=== PATIENT | male | born 1940 | race African-American/Black ===

== ENCOUNTER 2020-02-16 18:23 | Inpatient (IN) | payer OTHER ==
[~2020-02-16] VITALS: Ht 188 cm; Wt 89.9 kg
[2020-02-16 18:40] VITALS: BP 143/73
--- NOTE | 2020-02-16 18:43 | NUR ---
ED Nurse Note: Collected blood specimen then sent.
[2020-02-16] MEDS ORDERED: Aspirin Baby 81mg ORAL ONE (18:45)
[2020-02-16] MEDS ORDERED: Morphine Sulfate 2mg/ml Inj(IV/IM USE ONLY) IVP ONE (18:45)
--- NOTE | 2020-02-16 18:46 | NUR ---
ED Nurse Note: Patient wheeled in after a clinic visit from Dr Tay's office. Patient reports left side CP and non radiating x 3 days. Mild SOB at rest. Sats 95-98 % in room air. AAO x4, follows commands. Dr Schmitz at the bed side.
--- NOTE | 2020-02-16 18:54 | NUR ---
ED Nurse Note: Meds carried out as ordered. Pt taken to CT in stable condition.
--- NOTE | 2020-02-16 19:01 | NUR ---
ED Nurse Note: Patient came back from CT and stable
--- NOTE | 2020-02-16 19:12 | NUR ---
HAND-OFF: Report given to Moriah CONN.
--- NOTE | 2020-02-16 19:15 | NUR ---
ED Nurse Note: Report received from FABIEN Moreno. Pt returned from CT, resting in bed. NAD noted.
--- NOTE | 2020-02-16 19:17 | Emergency Room Report ---
History of Present Illness General Chief Complaint: Chest Pain Source: Patient Present Illness HPI Disclaimer: Please note that this report is being documented using DRAGON technology. This can lead to erroneous entry secondary to incorrect interpretation by the dictating instrument. HPI: 79-year-old male history of CKD, hypertension presented for chest pain. He states he has had chest pain for the past week. Left-sided and nonradiating associated with mild shortness of breath. Mild cough no vomiting no fever. He was recently admitted to [facility] at that time Covid negative. Allergies: Coded Allergies: No Known Allergies (Unverified , 02/16/20) COVID-19 Screening Contact w/high risk pt: No Experienced COVID-19 symptoms?: No COVID-19 Testing performed WINE BLENDER: No Patient History Reviewed Nursing Documentation: PMH: Agreed; PSxH: Agreed Nursing Documentation-PMH Past Medical History: No History, Except For Hx Hypertension: Yes Hx Diabetes: Yes Review of Systems All Other Systems: negative except mentioned in HPI Physical Exam Vital Signs Date Time Temp Pulse Resp B/P (MAP) Pulse Ox O2 Delivery O2 Flow Rate FiO2 02/16/20 18:36 97.9 64 22 143/73 (96) 100 Room Air Sp02 EP Interpretation: reviewed, normal General Appearance: well appearing, no apparent distress Head: normocephalic, atraumatic Eyes: bilateral eye PERRL, bilateral eye EOMI ENT: hearing grossly normal, moist mucus membranes Neck: full range of motion, supple Respiratory: lungs clear, normal breath sounds, no rhonchi, no respiratory distress, no retraction, no wheezing Cardiovascular #1: normal peripheral pulses, regular rate, rhythm, no murmur Gastrointestinal: non tender, soft, non-distended, no guarding Neurologic: alert, oriented x3, no focal defects Skin: normal color, warm/dry Medical Decision Making Diagnostic Impression: Primary Impression: Chest pain Additional Impressions: Hiatal hernia Esophagitis ER Course MDM: Differential included but not limited to angina, pneumonia, CHF, COPD to name a few Clinical course-IV inserted, cardiac monitoring pulse oximetry chest x-ray, EKG and CT scan of the abdomen pelvis ordered. Troponin was negative. CT scan of the abdomen pelvis showed evidence of a hiatal hernia with probable esophagitis. Chest x-ray showed no large infiltrate. EKG had no ischemic changes. However patient does have multiple risk factors for cardiac disease and also is a very poor historian. Spoke with patient's primary care doctor who will place patient in observation. Patient admitted by Dr. Tay. Patient was given aspirin in the ER. Labs - Laboratory Tests Test 02/16/20 18:40 White Blood Count 5.2 K/UL (4.8-10.8) Red Blood Count 4.65 M/UL (4.70-6.10) L Hemoglobin 13.2 G/DL (14.2-18.0) L Hematocrit 41.2 % (42.0-52.0) L Mean Corpuscular Volume 88 FL (80-99) Mean Corpuscular Hemoglobin 28.4 PG (27.0-31.0) Mean Corpuscular Hemoglobin Concent 32.1 G/DL (32.0-36.0) Red Cell Distribution Width 14.9 % (11.6-14.8) H Platelet Count 203 K/UL (150-450) Mean Platelet Volume 7.4 FL (6.5-10.1) Neutrophils (%) (Auto) % (45.0-75.0) Lymphocytes (%) (Auto) % (20.0-45.0) Monocytes (%) (Auto) % (1.0-10.0) Eosinophils (%) (Auto) % (0.0-3.0) Basophils (%) (Auto) % (0.0-2.0) Differential Total Cells Counted 100 Neutrophils % (Manual) 34 % (45-75) L Lymphocytes % (Manual) 58 % (20-45) H Monocytes % (Manual) 6 % (1-10) Eosinophils % (Manual) 1 % (0-3) Basophils % (Manual) 1 % (0-2) Band Neutrophils 0 % (0-8) Platelet Estimate Adequate Platelet Morphology Normal Red Blood Cell Morphology Normal Sodium Level 141 MMOL/L (136-145) Potassium Level 4.4 MMOL/L (3.5-5.1) Chloride Level 104 MMOL/L (98-107) Carbon Dioxide Level 28 MMOL/L (21-32) Anion Gap 10 mmol/L (5-15) Blood Urea Nitrogen 21 mg/dL (7-18) H Creatinine 1.1 MG/DL (0.55-1.30) Estimated Glomerular Filtration Rate > 60 mL/min (>60) Glucose Level 111 MG/DL (74-106) H Calcium Level 9.3 MG/DL (8.5-10.1) Total Bilirubin 0.4 MG/DL (0.2-1.0) Aspartate Amino Transferase (AST) 14 U/L (15-37) L Alanine Aminotransferase (ALT) 14 U/L (12-78) Alkaline Phosphatase 74 U/L (46-116) Troponin I 0.001 ng/mL (0.000-0.056) Pro-B-Type Natriuretic Peptide 40 pg/mL (0-125) Total Protein 7.2 G/DL (6.4-8.2) Albumin 3.6 G/DL (3.4-5.0) Globulin 3.6 g/dL Albumin/Globulin Ratio 1.0 (1.0-2.7) EKG Diagnostic Results Troponin ordered: Yes Rate: normal Rhythm: NSR ST Segments: no acute changes Chest X-Ray Diagnostic Results Chest X-Ray Diagnostic Results : Chest X-Ray Ordered: Yes # of Views/Limited/Complete: 1 View Indication: Chest Pain EP Interpretation: Yes Interpretation: no consolidation, no effusion, no pneumothorax Impression: No acute disease PA Scribe Text Da Schmitz MD CT/MRI/US Diagnostic Results CT/MRI/US Diagnostic Results : Imaging Test Ordered: CT abdomen and pelvis Impression IMPRESSION: 1. Cardiomegaly. 2. Hiatal hernia probable distal esophagitis. 3. Fatty infiltration of the liver. 4. The gallbladder is unremarkable per 5. Nonspecific stranding about the perinephric spaces. 6. Moderate quantity of stool throughout the colon. 7. No evidence of bowel obstruction. 8. The appendix is seen on coronal image 43 and is unremarkable. 9. Mild enlargement of the prostate gland. Last Vital Signs Date Time Temp Pulse Resp B/P (MAP) Pulse Ox O2 Delivery O2 Flow Rate FiO2 02/16/20 18:46 64 22 Room Air 02/16/20 18:40 97.9 143/73 100 Disposition: PLACE IN OBSERVATION Condition: Serious Scripts Unable to Obtain Active Prescriptions or Reported Meds Referrals: Titi Tay MD (PCP) Da Schmitz M.D. Feb 16, 2020 19:17
--- NOTE | 2020-02-16 19:29 | Diagnostic Imaging Report ---
EXAM: CT Abdomen and Pelvis Without Intravenous Contrast CLINICAL HISTORY: PAIN TECHNIQUE: Axial computed tomography images of the abdomen and pelvis without intravenous contrast. CTDI is 8.2 mGy and DLP is 468.9 mGy-cm. One or more of the following dose reduction techniques were used: automated exposure control, adjustment of the mA and/or kV according to patient size, use of iterative reconstruction technique. COMPARISON: No previous studies. FINDINGS: Lung bases: Subsegmental atelectasis noted posteriorly at the lung bases. Heart: Heart is top normal in size. Mediastinum: Hiatal hernia and probable distal esophagitis. ABDOMEN: Liver: Diffuse fatty infiltration of the liver is noted. The liver and the spleen are normal in contour. Gallbladder and bile ducts: Unremarkable. No calcified stones. No ductal dilation. Pancreas: See below. Spleen: See above. Adrenals: The adrenal glands, the head, body, tail of the pancreas are unremarkable. Kidneys and ureters: Nonspecific stranding about the perinephric spaces bilaterally which requires clinical correlation. 1.7 cm simple cyst upper pole region of the right kidney. No follow-up is advised. No obstructing stones. Stomach and bowel: Presumed ingested material in the stomach. Moderate quantity of stool throughout the colon. No evidence of bowel obstruction. Mild distention of the rectosigmoid with stool. No mucosal thickening. PELVIS: Appendix: The appendix is seen on coronal image 43 and is unremarkable. Bladder: Unremarkable. No stones. Reproductive: Prostate gland measures 4.1 x 4.8 cm and is mildly enlarged. ABDOMEN and PELVIS: Intraperitoneal space: Unremarkable. No free air. No significant fluid collection. Bones/joints: Moderate degenerative disc disease of the thoracolumbar spine. 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 Alignment of the thoracolumbar spine is unremarkable. The sacrum and coccyx are unremarkable. Decrease in height at the L5 vertebral body. Anterior wedging of the L2 vertebral body. 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 Ischiorectal fat is clean. Vasculature: Atherosclerotic disease of the abdominal aorta extending to the common iliac arteries. No abdominal aortic aneurysm. Lymph nodes: No pelvic or inguinal lymphadenopathy. Other findings: Elevation of the right hemidiaphragm. IMPRESSION: 1. Cardiomegaly. 2. Hiatal hernia probable distal esophagitis. 3. Fatty infiltration of the liver. 4. The gallbladder is unremarkable per 5. Nonspecific stranding about the perinephric spaces. 6. Moderate quantity of stool throughout the colon. 7. No evidence of bowel obstruction. 8. The appendix is seen on coronal image 43 and is unremarkable. 9. Mild enlargement of the prostate gland.
[2020-02-16 19:30] VITALS: BP 138/74
[2020-02-16 19:40] LABS: HEMATOCRIT 41.2 % (42.0-52.0); HEMOGLOBIN 13.2 G/DL (14.2-18.0); MEAN CORPUSCULAR VOLUME 88 FL (80-99); PLATELET COUNT 203 K/UL (150-450); RED BLOOD COUNT 4.65 M/UL (4.70-6.10); RED CELL DISTRIBUTION WIDTH 14.9 % (11.6-14.8); WHITE BLOOD COUNT 5.2 K/UL (4.8-10.8)
[2020-02-16 19:49] LABS: ANION GAP 10 mmol/L (5-15); BLOOD UREA NITROGEN 21 mg/dL (7-18); CALCIUM 9.3 MG/DL (8.5-10.1); CARBON DIOXIDE 28 MMOL/L (21-32); CHLORIDE 104 MMOL/L (98-107); CREATININE 1.1 MG/DL (0.55-1.30); POTASSIUM 4.4 MMOL/L (3.5-5.1); SODIUM 141 MMOL/L (136-145)
[2020-02-16 19:59] LABS: ALANINE AMINOTRANSFERASE 14 U/L (12-78); ALBUMIN 3.6 G/DL (3.4-5.0); ALKALINE PHOSPHATASE 74 U/L (46-116); ASPARTATE AMINO TRANSFERASE 14 U/L (15-37); BILIRUBIN,TOTAL 0.4 MG/DL (0.2-1.0)
[2020-02-16 20:00] VITALS: BP 170/76
[2020-02-16] MEDS ORDERED: 1/2 NS 1000ml IV ONE (20:57)
--- NOTE | 2020-02-16 21:15 | NUR ---
ED Nurse Note: Report given to FABIEN Morales.
[2020-02-16] MEDS ORDERED: Flu Vaccine Quadrivalent IM ONE (21:30)
[2020-02-16] MEDS ORDERED: Nitroglycerin Subl 0.4mg tab SL PRN (21:30)
--- NOTE | 2020-02-16 21:35 | NUR ---
ED Nurse Note: Patient is stable for OBS admission to tele unit at this time as ordered by MD. Pt is aaox4, breathing is normal and unlabored and he has no complaint at time of ED departure. IV is patent and intact. Pt took all belongings wit him. Pt transferred to unit via gurney by theodora and RN while connected to monitoring manager. Pt transferred to tele bed without complication.
--- NOTE | 2020-02-16 21:45 | NUR ---
NURSE NOTES: Pt. received from FABIEN Major. PT. AAO4, breathing even and unlabored on room air, no indication of respiratory distress, no complaints of pain at this time, skin intact. Pt. ambulatory with slow gait and use of walker to bed. Belongings checked and verified against belongings list, belongings with pt. IV noted right upper arm 20g intact and patent, saline locked. Vital signs HR 56 BP 170/76 O2 100% RR 18 T 97; will follow up with primary for orders and to notify of hypertension. Pt. with slurred speech, pt. stated "been like that for a while." Bed low and locked, side rails x3 up, bed alarm active, and call light in reach.
--- NOTE | 2020-02-16 22:16 | NUR ---
NURSE NOTES: Orders received from Dr. Tay, will carry of plan of care as ordered.
[2020-02-16] MEDS: 1/2 NORMAL SALINE IV SCH (22:40)
[2020-02-16] MEDS: Enoxaparin 40mg Inj SUBQ SCH (22:40)
[2020-02-16] MEDS: HydrALAZINE 25mg tab ORAL PRN (22:50)
[2020-02-17] VITALS (7 sets, daily range): BP systolic 123–160; BP diastolic 64–83
--- NOTE | 2020-02-17 05:21 | NUR ---
NURSE NOTES: Pt. able to stand to use urinal x2 overnight. Standing with steadily with support of bed, nurse at standby for pt. safety. Pt. able to utilize call light for assistance as educated.
[2020-02-17 05:40] LABS: BASOPHILS % (AUTO) 1.6 % (0.0-2.0); EOSINOPHILS % (AUTO) 4.5 % (0.0-3.0); HEMATOCRIT 35.5 % (42.0-52.0); HEMOGLOBIN 11.6 G/DL (14.2-18.0); MEAN CORPUSCULAR VOLUME 84 FL (80-99); MONOCYTES % (AUTO) 9.8 % (1.0-10.0); NEUTROPHILS % (AUTO) 31.1 % (45.0-75.0); PLATELET COUNT 196 K/UL (150-450); RED CELL DISTRIBUTION WIDTH 14.4 % (11.6-14.8); WHITE BLOOD COUNT 4.1 K/UL (4.8-10.8)
[2020-02-17 06:09] LABS: ANION GAP 7 mmol/L (5-15); BLOOD UREA NITROGEN 18 mg/dL (7-18); CALCIUM 8.4 MG/DL (8.5-10.1); CARBON DIOXIDE 27 MMOL/L (21-32); CHLORIDE 105 MMOL/L (98-107); CREATININE 1.1 MG/DL (0.55-1.30); POTASSIUM 3.9 MMOL/L (3.5-5.1); SODIUM 139 MMOL/L (136-145)
--- NOTE | 2020-02-17 06:43 | NUR ---
NURSE NOTES: Dr. Tay called to notify regarding pt.'s episodes of sinus bradycardia, pt. stable, no acute signs of distress. Pt. between sinus suzi and sinus rhythm. Awaiting return call and follow up orders, will endorse to next shift. Charge nurse aware.
--- NOTE | 2020-02-17 07:00 | NUR ---
NURSE NOTES: Received report from Andrew CONN. Pt is stable and sitting up in bed eating breakfast. No s/s or complaint of distress at this time on RA. Pt has a CORTNEY 20g running 1/2 NS at 75cc, asymptomatic and intact. Pt bed low and locked, call light in reach and bed alarm on. Pt verbalized understanding to utilize call light for any assistance.
--- NOTE | 2020-02-17 07:19 | NUR ---
NURSE HAND-OFF REPORT: Important Events on Shift:[episode of hypertension controlled with PRN blood pressure medications, episode of sinus bradycardia reported to Dr. Tay, awaiting return call and orders, endorsed to FABIEN Daniels] Patient Status: stable, awake and eating Diet: regular Pending Orders: na Pending Results/Labs:na Pending MD notification:sinus bradycardia reported to Dr. Tay Latest Vital Signs: Temperature 97.9 , Pulse 56 , B/P 138 /80 , Respiratory Rate 20 , O2 SAT 95 , Room Air, O2 Flow Rate . Vital Sign Comment: stable EKG Rhythm: Sinus Bradycardia Rhythm change?: Y MD Notified?: N - MD Response: Latest Shin Fall Score: 45 Fall Risk: High Risk Safety Measures: Call light Within Reach, Bed Alarm Zone 1, Side Rails Side Rails x3, Bed position Low and Locked. Fall Precautions: Yellow Gown Patient Fall Education Report given to FABIEN Daniels.
[2020-02-17] MEDS: Aspirin Baby 81mg ORAL SCH (08:43)
--- NOTE | 2020-02-17 10:03 | NUR ---
P.T Note: P.T evaluation completed and tx initiated. Please refer to P.T evaluation for full report.
[2020-02-17] MEDS: 1/2 NORMAL SALINE IV SCH (10:47)
--- NOTE | 2020-02-17 11:00 | NUR ---
NURSE NOTES: Spoke w/ Dr Tay regarding Pt elevated BP, nerve pain of lower extremities and no BM for past 4-5 days. Pt to have a 2d echo. Pt to stay overnight today, cont. observation. put in new orders, orders acknowledged and carried out.
--- NOTE | 2020-02-17 11:22 | History and Physical ---
History of Present Illness General Date patient seen: Feb 17, 2020 Time patient seen: 11:00 Reason for Hospitalization: Chest Pain Present Illness HPI 79 y/o AA male admitted to the hospital due to chest pain. He is a poor historian who was previously seen at [facility] in 01/11/20 for JOCELINE with Cr: 2.9 and treated with IVF, ruled out for rhabomyolysis, normocytic anemia, chronic cough due to tobacco use and is currently living at a board and care. He was admitted due to chest pain, EKG did not show ischemic changes. His blood pressure was elevated > 170 mmHg and admission is required for medical management and follow up. ED course reviewed. He received ASA 162 mg PO and Morphine 2 mg IV x 1 Currently he feels well. Denies chest pain. Allergies: Coded Allergies: No Known Allergies (Unverified , 02/16/20) COVID-19 Screening Contact w/high risk pt: No Experienced COVID-19 symptoms?: No Medication History Unable to Obtain Active Prescriptions or Reported Meds Patient History Healthcare decision maker Resuscitation status Advanced Directive on File Review of Systems Constitutional: Reports: no symptoms, see HPI All Other Systems: negative except mentioned in HPI ROS Narrative Left sided chest pain is pressure like and lasts for hours per his report. Not present at the time. Physical Exam General Appearance: WD/WN Lines, tubes and drains: peripheral HEENT: normocephalic, atraumatic Respiratory/Chest: lungs clear Cardiovascular/Chest: normal rate Abdomen: non tender Extremities: non-tender Neurologic: multimedia coordinator II-XII grossly normal Last 24 Hour Vital Signs Date Time Temp Pulse Resp B/P (MAP) Pulse Ox O2 Delivery O2 Flow Rate FiO2 02/17/20 10:30 62 18 155/66 (95) 97 02/17/20 09:00 Room Air 02/17/20 08:43 89 157/83 02/17/20 08:00 97.5 89 20 157/83 (107) 97 02/17/20 08:00 68 02/17/20 04:00 97.9 56 20 138/80 (99) 95 02/17/20 04:00 56 02/17/20 00:00 97.9 79 16 126/64 (84) 96 02/17/20 00:00 79 02/16/20 22:50 170/76 02/16/20 22:19 Room Air 02/16/20 21:35 98.2 62 20 159/75 99 Room Air 02/16/20 20:00 97.0 61 18 170/76 (107) 100 02/16/20 19:30 97.9 60 20 138/74 100 Room Air 02/16/20 19:19 97.9 02/16/20 18:46 64 22 Room Air 02/16/20 18:40 97.9 70 22 143/73 100 Room Air 02/16/20 18:36 97.9 64 22 143/73 (96) 100 Room Air Intake and Output 02/16/20 02/17/20 19:00 07:00 Intake Total 1025 ml Output Total 240 ml Balance 785 ml Intake Oral 500 ml IV Total 525 ml Output Urine Total 240 ml # Voids 3 Laboratory Tests Test 02/16/20 18:40 02/17/20 05:25 White Blood Count 5.2 K/UL (4.8-10.8) 4.1 K/UL (4.8-10.8) L Red Blood Count 4.65 M/UL (4.70-6.10) L 4.20 M/UL (4.70-6.10) L Hemoglobin 13.2 G/DL (14.2-18.0) L 11.6 G/DL (14.2-18.0) L Hematocrit 41.2 % (42.0-52.0) L 35.5 % (42.0-52.0) L Mean Corpuscular Volume 88 FL (80-99) 84 FL (80-99) Mean Corpuscular Hemoglobin 28.4 PG (27.0-31.0) 27.7 PG (27.0-31.0) Mean Corpuscular Hemoglobin Concent 32.1 G/DL (32.0-36.0) 32.8 G/DL (32.0-36.0) Red Cell Distribution Width 14.9 % (11.6-14.8) H 14.4 % (11.6-14.8) Platelet Count 203 K/UL (150-450) 196 K/UL (150-450) Mean Platelet Volume 7.4 FL (6.5-10.1) 6.1 FL (6.5-10.1) L Neutrophils (%) (Auto) % (45.0-75.0) 31.1 % (45.0-75.0) L Lymphocytes (%) (Auto) % (20.0-45.0) 53.0 % (20.0-45.0) H Monocytes (%) (Auto) % (1.0-10.0) 9.8 % (1.0-10.0) Eosinophils (%) (Auto) % (0.0-3.0) 4.5 % (0.0-3.0) H Basophils (%) (Auto) % (0.0-2.0) 1.6 % (0.0-2.0) Differential Total Cells Counted 100 Neutrophils % (Manual) 34 % (45-75) L Lymphocytes % (Manual) 58 % (20-45) H Monocytes % (Manual) 6 % (1-10) Eosinophils % (Manual) 1 % (0-3) Basophils % (Manual) 1 % (0-2) Band Neutrophils 0 % (0-8) Platelet Estimate Adequate Platelet Morphology Normal Red Blood Cell Morphology Normal Sodium Level 141 MMOL/L (136-145) 139 MMOL/L (136-145) Potassium Level 4.4 MMOL/L (3.5-5.1) 3.9 MMOL/L (3.5-5.1) Chloride Level 104 MMOL/L (98-107) 105 MMOL/L (98-107) Carbon Dioxide Level 28 MMOL/L (21-32) 27 MMOL/L (21-32) Anion Gap 10 mmol/L (5-15) 7 mmol/L (5-15) Blood Urea Nitrogen 21 mg/dL (7-18) H 18 mg/dL (7-18) Creatinine 1.1 MG/DL (0.55-1.30) 1.1 MG/DL (0.55-1.30) Estimat Glomerular Filtration Rate > 60 mL/min (>60) > 60 mL/min (>60) Glucose Level 111 MG/DL (74-106) H 98 MG/DL (74-106) Calcium Level 9.3 MG/DL (8.5-10.1) 8.4 MG/DL (8.5-10.1) L Total Bilirubin 0.4 MG/DL (0.2-1.0) Aspartate Amino Transf (AST/SGOT) 14 U/L (15-37) L Alanine Aminotransferase (ALT/SGPT) 14 U/L (12-78) Alkaline Phosphatase 74 U/L (46-116) Troponin I 0.001 ng/mL (0.000-0.056) 0.006 ng/mL (0.000-0.056) Pro-B-Type Natriuretic Peptide 40 pg/mL (0-125) Total Protein 7.2 G/DL (6.4-8.2) Albumin 3.6 G/DL (3.4-5.0) Globulin 3.6 g/dL Albumin/Globulin Ratio 1.0 (1.0-2.7) Thyroid Stimulating Hormone (TSH) 0.998 uiU/mL (0.358-3.740) Height (Feet): 6 Height (Inches): 2.00 Weight (Pounds): 190 Medications Current Medications Medications (Trade) Dose Ordered Sig/Stephen Route PRN Reason Start Time Stop Time Status Last Admin Dose Admin Acetaminophen (Tylenol) 650 mg Q4H PRN ORAL Mild Pain (Pain Scale 1-3) 02/16/20 21:30 03/17/20 21:29 Amlodipine Besylate (Norvasc) 5 mg DAILY ORAL 02/17/20 09:00 03/18/20 08:59 02/17/20 08:43 Aspirin (ASA) 81 mg DAILY ORAL 02/17/20 09:00 04/02/20 08:59 02/17/20 08:43 Dextrose (Dextrose 50%) 25 ml Q30M PRN IV Hypoglycemia 02/16/20 21:30 05/16/20 21:29 Dextrose (Dextrose 50%) 50 ml Q30M PRN IV Hypoglycemia 02/16/20 21:30 05/16/20 21:29 Enoxaparin Sodium (Lovenox) 40 mg Q24H SUBQ 02/16/20 22:30 05/16/20 22:29 02/16/20 22:40 Hydralazine HCl (Apresoline) 25 mg Q6H PRN ORAL For High Blood Pressure 02/16/20 22:30 05/16/20 22:29 02/16/20 22:50 Influenza Virus Vaccine Quadrival (Flu Vaccine) 0.5 ml ONCE ONCE IM 02/16/20 21:30 02/16/20 21:31 UNV Morphine Sulfate (Morphine Sulfate) 2 mg Q4H PRN IVP Moderate Pain (Pain Scale 4-6) 02/16/20 21:30 02/23/20 21:29 Nitroglycerin (Ntg) 0.4 mg Q5M PRN SL Prn Chest Pain 02/16/20 21:30 03/17/20 21:29 Ondansetron HCl (Zofran) 4 mg Q6H PRN IVP Nausea & Vomiting 02/16/20 21:30 03/17/20 21:29 Pantoprazole (Protonix) 40 mg DAILY ORAL 02/17/20 09:00 03/18/20 08:59 02/17/20 08:43 Sodium Chloride 1,000 ml @ 75 mls/hr [id number] IV 02/16/20 21:45 03/17/20 21:44 02/17/20 10:47 Assessment/Plan Status: stable Status Narrative 79 y/o M admitted to observation with telemetry # Chest pain EKG is negative for ischemia, troponin negative x 2 TTE will be ordered to assess EF and WMA PRN NTG Continue low dose ASA Ddx include atypical chest pain, chostocondritis, GI etiology - esophagitis. Continue PPI # Hypertensive heart disease Amlodipine 5 mg was started Add lisinopril 5 mg daily Monitor BP and PRN Hydralizine if SBP > 160 # Constipation Start Miralax # Generalized weakness PT session FWW training today Will continue to use FWW # Disposition BC when ready to dc - likely tomorrow # DVT ppx with LMWH # GI ppx with PPI # CODE FULL # IVF with HL when completed today # Precautions. None # Diet. Cardiac will be changed. Titi Tay MD Feb 17, 2020 11:22
--- NOTE | 2020-02-17 11:49 | NUR ---
CASE MANAGEMENT: INITIAL REVIEW 79 YO M PRESENTED TO ED FROM MD OFFICE CC: LEFT SIDED NON RADIATING CP X3 DAYS PMHx: HTN. DM. SI:CP T 97.9 HR 64 RR 22 B/P 143/73 SATS 100% ON RA LABS: BUN 21 GLU 111 AST 14 TROPONIN (-) X2 IS: ASA PO X1 MORPHINE IV X1 CXR: Impression: No acute disease PATIENT ADMITTED UNDER OBS 02/16/2020 @ 2055 DCP: HOME CONCURRENT REVIEW FOR 02/17/2020 SI: CP VS: T 97.5 HR 89 RR 20 B/P 157/83 SATS 97% ON RA LABS: WBC 4.1 CA 8.4 IS:NS @ 75 ML/HR ASA PO QD NORVASC PO QD LISINOPRIL PO QD GABAPENTIN PO TID TELE DCP: HOME PLAN OF CARE: 2D ECHO
--- NOTE | 2020-02-17 11:59 | NUR ---
INSURANCE NO [facility] IPA: [id number] P:[phone] F:[phone] (FAX CLINICALS) AND [phone]
[2020-02-17] MEDS: Lisinopril 2.5mg tab ORAL SCH (12:17)
--- NOTE | 2020-02-17 14:10 | NUR ---
NURSE NOTES: Pt had 13 beats SVT today. Pt stable. Dr Tay notified, awaiting call back.
--- NOTE | 2020-02-17 15:30 | NUR ---
NURSE NOTES: Pt is stable. Resting in bed with no complaints at this time.
--- NOTE | 2020-02-17 16:14 | Diagnostic Imaging Report ---
Indication: Chest pain Technique: One view of the chest Comparison: none Findings: Lungs and pleural spaces are clear. Heart size is normal. Impression: No acute process
[2020-02-17] MEDS: Miralax 17gm pkt ORAL PRN (18:05)
--- NOTE | 2020-02-17 19:31 | NUR ---
NURSE HAND-OFF REPORT: Important Events on Shift: 13 beats SVT-- Dr Dhaliwal consulted Patient Status: FC, Stable Diet: cardiac, mech soft Pending Orders: Pending Results/Labs: Pending MD notification: Latest Vital Signs: Temperature 99.0 , Pulse 74 , B/P 123 /71 , Respiratory Rate 18 , O2 SAT 96 , Room Air, O2 Flow Rate . Vital Sign Comment: EKG Rhythm: Sinus Rhythm Rhythm change?: N MD Notified?: N - MD Response: Latest Shin Fall Score: 45 Fall Risk: High Risk Safety Measures: Call light Within Reach, Bed Alarm Zone 2, Side Rails Side Rails x3, Bed position Low and Locked. Fall Precautions: Yellow Socks Yellow Gown Door Sign Patient Fall Education Report given to FABIEN Khan.
--- NOTE | 2020-02-17 19:36 | NUR ---
NURSE NOTES: Received handoff report from Frances Fontana RN. Patient in stable condition, high-fowlers, able to verbalize needs, alert and oriented x4 with some slurring d/t history of CVA. Breathing even and unlabored, on room air, running 0.45% NS at 75mL/h on right upper arm 20g, intact, no redness, no pain / tenderness, no leaking, no swelling noted. Bed alarm on, bed in lowest and locked position, call light within reach.
[2020-02-17] MEDS: Enoxaparin 40mg Inj SUBQ SCH (19:46)
[2020-02-17] MEDS: Morphine Sulfate 2mg/ml Inj(IV/IM USE ONLY) IVP PRN (19:48)
[2020-02-17] MEDS: HydrALAZINE 25mg tab ORAL PRN ×2 (20:49→20:53)
[2020-02-18] VITALS: BP 138/81
[2020-02-18] MEDS: 1/2 NORMAL SALINE IV SCH ×2 (00:38→13:45)
[2020-02-18 04:00] VITALS: BP 142/81
[2020-02-18 07:03] LABS: BASOPHILS % (AUTO) 2.8 % (0.0-2.0); EOSINOPHILS % (AUTO) 4.4 % (0.0-3.0); HEMATOCRIT 41.5 % (42.0-52.0); HEMOGLOBIN 13.9 G/DL (14.2-18.0); LYMPHOCYTES % (AUTO) 49.8 % (20.0-45.0); MEAN CORPUSCULAR VOLUME 84 FL (80-99); MONOCYTES % (AUTO) 8.6 % (1.0-10.0); NEUTROPHILS % (AUTO) 34.4 % (45.0-75.0); PLATELET COUNT 209 K/UL (150-450); RED BLOOD COUNT 4.96 M/UL (4.70-6.10); RED CELL DISTRIBUTION WIDTH 14.1 % (11.6-14.8); WHITE BLOOD COUNT 4.3 K/UL (4.8-10.8)
[2020-02-18 07:16] LABS: BLOOD UREA NITROGEN 13 mg/dL (7-18); CALCIUM 9.2 MG/DL (8.5-10.1); CARBON DIOXIDE 29 MMOL/L (21-32); CHLORIDE 104 MMOL/L (98-107); CREATININE 1.1 MG/DL (0.55-1.30); POTASSIUM 4.3 MMOL/L (3.5-5.1); SODIUM 138 MMOL/L (136-145)
--- NOTE | 2020-02-18 07:30 | NUR ---
NURSE HAND-OFF REPORT: Important Events on Shift: Patient refused another IV. Patient was educated on the risks of not having an IV and patient verbalized understanding. Patient currently has no IV access and refused it three times. Patient Status: full code, OBS, stable condition, no complaints of chest pain / pressure at this time Diet: cardiac Pending Orders: Pending Results/Labs: Pending MD notification: Latest Vital Signs: Temperature 98.1 , Pulse 53 , B/P 142 /81 , Respiratory Rate 20 , O2 SAT 100 , Room Air, O2 Flow Rate . Vital Sign Comment: EKG Rhythm: Sinus Bradycardia Rhythm change?: N MD Notified?: N - MD Response: Latest Shin Fall Score: 45 Fall Risk: High Risk Safety Measures: Call light Within Reach, Bed Alarm Zone 2, Side Rails Side Rails x3, Bed position Low and Locked. Fall Precautions: Yellow Socks Yellow Gown Door Sign Patient Fall Education Report given to Freda Barahona RN.
--- NOTE | 2020-02-18 07:31 | NUR ---
NURSE NOTES: Received patient in bed awake. No SOB or acute distress. Refused IV reinsertion after offering 3 times, risks and benefits explained, verbalized understanding. HOB elevated. Bed locked in low position. Call light within reach. Will continue plan of care.
[2020-02-18 08:00] VITALS: BP 131/66
[2020-02-18] MEDS: Aspirin Baby 81mg ORAL SCH (08:28)
[2020-02-18] MEDS: Lisinopril 2.5mg tab ORAL SCH (08:29)
--- NOTE | 2020-02-18 09:07 | NUR ---
CASE MANAGEMENT: REVIEW 02/18/2020 SI: CP VS: T 99.6 HR 64 RR 19 B/P 131/66 SATS 98% ON RA LABS: WBC 4.3 IS:NS @ 75 ML/HR ASA PO QD NORVASC PO QD LISINOPRIL PO QD GABAPENTIN PO TID TELE DCP: HOME PLAN OF CARE: 2D ECHO >>> EF 65%
--- NOTE | 2020-02-18 09:14 | NUR ---
INSURANCE NO [facility] IPA: [id number] P:[phone] F:[phone] (FAX CLINICALS) AND [phone]
[2020-02-18] MEDS ORDERED: ASPIRIN81 MG ORAL (10:38)
[2020-02-18] MEDS ORDERED: NORVASC5 MG ORAL (10:38)
[2020-02-18] MEDS ORDERED: ZESTRIL2.5 MG ORAL (10:38)
[2020-02-18] MEDS ORDERED: PANTOPRAZOLE SO40 MG ORAL (10:38)
--- NOTE | 2020-02-18 10:39 | Discharge Instructions ---
Discharge Instructions Discharge Instructions Services at Discharge: day care Diet: 2 GM sodium (low sodium) Resume Normal Activity?: Yes Special Instructions monitor BP and if > 160 mmHg call MD For Surgical Patients May shower: Yes For Congestive Heart Failure Reminder Report to your physician any weight gain of 5 pounds or more in one week. Titi Tay MD Feb 18, 2020 10:39
--- NOTE | 2020-02-18 10:42 | Discharge Summary ---
Discharge Summary Hospital Course Date of Admission Feb 16, 2020 at 20:56 Date of Discharge 02/18/2020 Admitting Diagnosis chest pain HPI Ronnie Galeano is a 79 year old male who was admitted on Feb 16, 2020 at 20:56 for Chest Pain Consultations Cardiology Procedures TTE EF 65 % No structural abnormality Hospital Course 79 y/o M admitted for chest pain. EKG and troponin x 2 negative for ischemia. His BP was noted to be elevated and he was started on Amlodipine and Lisinopril with good response to therapy. His chest pain resolved and TTE noted EF 65 % without structural abnormality. He did have a bout of 12 beat SVT which resolved on its own and did not return during telemetry monitoring. He is medically stable to discharge and Rx for Amlodipine, Lisinopril, ASA low dose, Protonix provided. Discharge Medications New Medications: Amlodipine Besylate (Norvasc) 5 Mg Tablet 5 MG ORAL DAILY for 30 Days, #30 TAB 2 Refills Aspirin* (Aspirin*) 81 Mg Tab.chew 81 MG ORAL DAILY for 30 Days, #30 TAB 2 Refills Lisinopril* (Zestril*) 2.5 Mg Tablet 5 MG ORAL DAILY for 30 Days, #30 TAB 2 Refills Pantoprazole* (Pantoprazole*) 40 Mg Tablet.dr 40 MG ORAL DAILY for 30 Days, #30 TAB Discharge Discharge Vital Signs Last Vital Signs Date Time Temp Pulse Resp B/P (MAP) Pulse Ox O2 Delivery O2 Flow Rate FiO2 02/18/20 09:00 Room Air 02/18/20 08:29 131/66 02/18/20 08:29 64 02/18/20 08:00 99.6 19 98 Discharge Disposition Patient was discharged to board and care Discharge Diagnoses: (1) Chest pain (2) Esophagitis (3) Hypertension Discharge Instructions Discharge Instructions Services Upon Discharge: day care For Surgical Patients May shower: Yes Titi Tay MD Feb 18, 2020 10:42
--- NOTE | 2020-02-18 11:07 | NUR ---
NURSE NOTES: Patient verbalized he spoke with a "Australian nurse" regarding receiving a new walker. Advertising Agent Erin made aware, said will speak with Dhey of media services director to verify.
[2020-02-18 12:00] VITALS: BP 154/66
[2020-02-18] MEDS ORDERED: Lexiscan 0.4mg/5ml syringe IV PRN (13:09)
--- NOTE | 2020-02-18 13:10 | Cardiac Electrophysiology PN ---
Subjective Subjective [id number] Objective Last 24 Hour Vital Signs Date Time Temp Pulse Resp B/P (MAP) Pulse Ox O2 Delivery O2 Flow Rate FiO2 02/18/20 09:00 Room Air 02/18/20 08:29 131/66 02/18/20 08:29 64 131/66 02/18/20 08:00 99.6 64 19 131/66 (87) 98 02/18/20 08:00 64 02/18/20 04:00 98.1 53 20 142/81 (101) 100 02/18/20 04:00 53 02/18/20 00:00 98.4 57 20 138/81 (100) 99 02/18/20 00:00 57 02/17/20 21:00 Room Air 02/17/20 20:53 160/83 02/17/20 20:00 98.4 67 20 160/83 (108) 96 02/17/20 20:00 67 02/17/20 16:00 70 02/17/20 16:00 99.0 74 18 123/71 (88) 96 Intake and Output 02/17/20 02/18/20 19:00 07:00 Intake Total 945 ml 200 ml Output Total 800 ml 2000 ml Balance 145 ml -1800 ml Intake Oral 840 ml IV Total 105 ml Other 200 ml Output Urine Total 800 ml 2000 ml # Voids 2 Laboratory Tests Test 02/18/20 06:55 White Blood Count 4.3 K/UL (4.8-10.8) L Red Blood Count 4.96 M/UL (4.70-6.10) Hemoglobin 13.9 G/DL (14.2-18.0) L Hematocrit 41.5 % (42.0-52.0) L Mean Corpuscular Volume 84 FL (80-99) Mean Corpuscular Hemoglobin 28.1 PG (27.0-31.0) Mean Corpuscular Hemoglobin Concent 33.5 G/DL (32.0-36.0) Red Cell Distribution Width 14.1 % (11.6-14.8) Platelet Count 209 K/UL (150-450) Mean Platelet Volume 6.0 FL (6.5-10.1) L Neutrophils (%) (Auto) 34.4 % (45.0-75.0) L Lymphocytes (%) (Auto) 49.8 % (20.0-45.0) H Monocytes (%) (Auto) 8.6 % (1.0-10.0) Eosinophils (%) (Auto) 4.4 % (0.0-3.0) H Basophils (%) (Auto) 2.8 % (0.0-2.0) H Sodium Level 138 MMOL/L (136-145) Potassium Level 4.3 MMOL/L (3.5-5.1) Chloride Level 104 MMOL/L (98-107) Carbon Dioxide Level 29 MMOL/L (21-32) Blood Urea Nitrogen 13 mg/dL (7-18) Creatinine 1.1 MG/DL (0.55-1.30) Estimat Glomerular Filtration Rate > 60 mL/min (>60) Glucose Level 89 MG/DL (74-106) Calcium Level 9.2 MG/DL (8.5-10.1) Ronn Dhlaiwal MD Feb 18, 2020 13:10
--- NOTE | 2020-02-18 13:22 | NUR ---
NURSE NOTES: Called patients director case management Jose Jalloh at [phone] to help the patient verify insurance left message Also sent copy of facesheet to [facility] and they said they need a copy of insurance card to verify or no medication, Pt will stay due to yesterday morning 13 beats of VT, Md Duke notified Md Tay and agreed that the pt needs a stress test stat, it will be done friday. However, pt has been refusing IV insertion but will agree to have the IV placed for the exam
--- NOTE | 2020-02-18 13:37 | NUR ---
DISCHARGE PLANNING: NOTE ORDER FOR FWW NOTED. ORDER FAXED TO [facility] AT [facility] HX PER NURSING DC TO BE CANCELLED TO SEVERAL BEATS OF VTACH AND FURTHER CARDIAC WORK UP NEEDED. Addendum: 02/18/20 at 1649 by Erin Wilson VLADISLAV [facility] WILL HAVE FWW DELIVERED TOMORROW 02/17 TO BEDSIDE
--- NOTE | 2020-02-18 14:45 | Consultation ---
DATE OF CONSULTATION: 02/18/2020 CARDIOLOGY CONSULTATION CONSULTING PHYSICIAN: Ronn Dhaliwal MD. REFERRING PHYSICIAN: Titi Tay MD. REASON FOR CONSULTATION: Chest pain and 13 beats of ventricular tachycardia. HISTORY OF PRESENT ILLNESS: The patient is an 79-year-old gentleman with history of hypertension, was brought to the hospital for chest pain. The patient was previously seen at [facility] on January 11, 2020 for renal failure with creatinine 2.9. The patient was admitted for chest pain. His blood pressure was also in 170s. On February 16 at 9:24 a.m., the patient also had 13 beats of ventricular tachycardia. Cardiac electrophysiology consultation was requested for further evaluation and management. REVIEW OF SYSTEMS: Negative other than what was mentioned in the history of present illness. PAST MEDICAL HISTORY: As mentioned above. FAMILY HISTORY: Noncontributory. SOCIAL HISTORY: He lives in assisted living and history of smoking in the past. PHYSICAL EXAMINATION: VITAL SIGNS: Show blood pressure of 131/66, pulse 64, respirations 18, temperature 99.6. HEAD AND NECK: Showed no JVD. LUNGS: Clear. CARDIOVASCULAR: Shows regular S1 and S2 with no gallop or murmur. ABDOMEN: Soft. EXTREMITIES: No pitting edema. LABORATORY AND DIAGNOSTIC STUDIES: His telemetry strip showed 13 beats of ventricular tachycardia on February 17, 2020 at 9:24 a.m. His EKG showed normal sinus rhythm, essentially normal electrocardiogram. His echocardiogram showed normal left ventricular systolic function, ejection fraction of 65%. His labs show sodium 138, potassium 4.3, BUN of 30, creatinine 1.1. Troponin negative x2. White count is 4.2, hemoglobin of 14, hematocrit of 41, and platelet count 209,000. ASSESSMENT AND PLAN: 1. Chest pain. The patient was ruled out for myocardial infarction with serial cardiac enzymes. EKG is nonischemic. Echocardiogram showed normal left ventricular systolic function. The patient, however, had 13 beats of ventricular tachycardia. Recommend to proceed with nuclear stress test to make sure this is not ischemic. 2. Nonsustained ventricular tachycardia of 13 beats. Again, we will proceed with nuclear stress test. 3. Accelerated hypertension. Continue lisinopril 5 mg daily and Norvasc 5 mg daily. The patient is also on p.r.n. hydralazine. 4. History of renal failure in the past, that is resolved, current creatinine is 1.1. Thank you very much, Dr. Tay, for allowing me to participate in the care of this patient. Please do not hesitate to contact me for any questions regarding my evaluation. Ronn Dhaliwal M.D. DR: SONALI JOB#: [id number] CC:
[2020-02-18 16:00] VITALS: BP 141/71
--- NOTE | 2020-02-18 16:41 | NUR ---
NURSE NOTES: IV line reinserted to right hand g22.
[2020-02-18] MEDS: Miralax 17gm pkt ORAL PRN (17:53)
--- NOTE | 2020-02-18 17:57 | NUR ---
NURSE NOTES: Discharge cancelled. For stress test on friday02/21/20.
--- NOTE | 2020-02-18 17:58 | NUR ---
NURSE HAND-OFF REPORT: Important Events on Shift:discharge cancelled, for stress test on friday02/21/2020. IV line reinserted to right hand g22. Patient Status: alert Diet: mech soft Pending Orders: stress test Pending Results/Labs: Pending MD notification: Latest Vital Signs: Temperature 98.1 , Pulse 71 , B/P 141 /71 , Respiratory Rate 18 , O2 SAT 98 , Room Air, O2 Flow Rate . Vital Sign Comment: EKG Rhythm: Sinus Rhythm Rhythm change?: N MD Notified?: N - MD Response: Latest Shin Fall Score: 45 Fall Risk: High Risk Safety Measures: Call light Within Reach, Bed Alarm Zone 2, Side Rails Side Rails x3, Bed position Low and Locked. Fall Precautions: Yellow Socks Yellow Gown Door Sign Patient Fall Education . Addendum: 02/18/20 at 1921 by Freda Barahona RN HAND-OFF: Report given to Stephanie SHAIKH
--- NOTE | 2020-02-18 19:45 | NUR ---
NURSE NOTES: Received report from FABIEN Barba. Patient alert, awake, and oriented x4. Able to communicate needs. On room air, saturating well. Breathing unlabored and even. Able to ambulate unassisted to the bathroom. IV site on RH # 22, running 1/2 NS at 75ml/hr. IV flushed and patent. No complaints of pain or discomfort at this time. Noted to have a stress test on Friday, with pending discharge right after. Bed in lowest position, brakes engaged and bed alarm on. Bed rails raised x2. Call light placed within reach. Will continue to monitor.
[2020-02-18 20:00] VITALS: BP 154/77
[2020-02-18] MEDS: Enoxaparin 40mg Inj SUBQ SCH (22:29)
[2020-02-18] MEDS: Morphine Sulfate 2mg/ml Inj(IV/IM USE ONLY) IVP PRN (22:36)
[2020-02-18] MEDS: HydrALAZINE 25mg tab ORAL PRN (23:40)
[2020-02-19] VITALS: BP 166/83
--- NOTE | 2020-02-19 00:50 | NUR ---
NURSE NOTES: Patient asleep, but easily arousable. IVF still running at a prescribed rate. No complaints of pain or discomfort at this time. Bed in lowest position, brakes engaged and bed alarm on. Bed rails raised x3. Call light placed within reach. Will continue to monitor.
[2020-02-19] MEDS: 1/2 NORMAL SALINE IV SCH ×2 (02:39→17:42)
[2020-02-19] MEDS: Morphine Sulfate 2mg/ml Inj(IV/IM USE ONLY) IVP PRN (03:52)
[2020-02-19 04:00] VITALS: BP 154/73
--- NOTE | 2020-02-19 05:16 | NUR ---
NURSE NOTES: Patient requested for tylenol previously, but upon preparation, patient refused tylenol and opted for his Morphine Sulfate instead, which wasn't due for another 1-2 hours. Tylenol wasted in the pyxis.
--- NOTE | 2020-02-19 07:25 | NUR ---
NURSE HAND-OFF REPORT: Important Events on Shift:[Elevated SBP during the shift, Hydralazine given as prescribed] Patient Status: [Full code, stable] Diet: [Cardiac; soft-easy chew, mech soft] Pending Orders: [] Pending Results/Labs:[] Pending MD notification:[] Latest Vital Signs: Temperature 97.7 , Pulse 58 , B/P 154 /73 , Respiratory Rate 18 , O2 SAT 99 , Room Air, O2 Flow Rate . Vital Sign Comment: [] EKG Rhythm: Sinus Bradycardia Rhythm change?: N MD Notified?: N - MD Response: Latest Shin Fall Score: 45 Fall Risk: High Risk Safety Measures: Call light Within Reach, Bed Alarm Zone 2, Side Rails Side Rails x3, Bed position Low and Locked. Fall Precautions: Yellow Socks Yellow Gown Door Sign Patient Fall Education Report given to [FABIEN Waldron].
--- NOTE | 2020-02-19 07:52 | NUR ---
NURSE NOTES: Received report from FABIEN Brown. Pt A/O x4. No s/s of acute respiratory and cardiac distress. Currently on room air. IVF running on right hand, patent, asymptomatic, intact. Pt has pending stress test scheduled for Friday02/21/20. Bed in low position, side rails up x2 and call light within reach. Will continue to monitor.
[2020-02-19 08:00] VITALS: BP 146/81
[2020-02-19] MEDS: Lisinopril 2.5mg tab ORAL SCH (08:52)
[2020-02-19] MEDS: Aspirin Baby 81mg ORAL SCH (08:52)
--- NOTE | 2020-02-19 10:34 | General Progress Note ---
Subjective Date patient seen: Feb 18, 2020 Time patient seen: 10:00 ROS Limited/Unobtainable: Yes Allergies: Coded Allergies: No Known Allergies (Unverified , 02/16/20) All Systems: reviewed and negative except above Subjective Feels better, denies chest pain or shortness of breath Objective Last 24 Hour Vital Signs Date Time Temp Pulse Resp B/P (MAP) Pulse Ox O2 Delivery O2 Flow Rate FiO2 02/19/20 09:00 Room Air 02/19/20 08:52 146/81 02/19/20 08:52 71 146/81 02/19/20 08:00 96.8 71 18 146/81 (102) 97 02/19/20 08:00 73 02/19/20 05:50 97.7 02/19/20 04:22 97.7 02/19/20 04:00 97.7 63 18 154/73 (100) 99 02/19/20 04:00 58 02/19/20 03:09 98.2 02/19/20 00:00 98.2 65 20 166/83 (110) 98 02/19/20 00:00 65 02/18/20 23:40 166/83 02/18/20 23:06 98.6 02/18/20 21:00 Room Air 02/18/20 20:00 64 02/18/20 20:00 98.6 98 20 154/77 (102) 98 02/18/20 16:00 84 02/18/20 16:00 98.1 71 18 141/71 (94) 98 02/18/20 12:00 96.6 69 20 154/66 (95) 97 02/18/20 12:00 62 Intake and Output 02/18/20 02/19/20 19:00 07:00 Intake Total 536.25 ml Output Total 1200 ml 1100 ml Balance -1200 ml -563.75 ml Intake Oral 210 ml IV Total 326.25 ml Output Urine Total 1200 ml 1100 ml # Voids 3 3 Height (Feet): 6 Height (Inches): 2.00 Weight (Pounds): 190 General Appearance: WD/WN EENT: PERRL/EOMI Neck: non-tender Cardiovascular: regular rhythm Respiratory/Chest: normal breath sounds Extremities: normal range of motion Edema: trace edema Neurologic: senior user experience architect II-XII grossly normal Assessment/Plan Status: stable Assessment/Plan: 79 y/o M admitted to observation with telemetry # Chest pain EKG is negative for ischemia, troponin negative x 2 TTE with EF 65 % and NO WMA 13 beat VT noted on telemetry and EP cardiology consultation requested. PRN NTG ordered. Continue low dose ASA Ddx include atypical chest pain, chostocondritis, GI etiology - esophagitis. Continue PPI # Hypertensive heart disease Amlodipine 5 mg was started Add lisinopril 5 mg daily Monitor BP and PRN Hydralizine if SBP > 160 # Constipation Start Miralax # Generalized weakness PT session FWW training today Will continue to use FWW # Disposition BC when ready to dc - pending cardiology clearance. # DVT ppx with LMWH # GI ppx with PPI # CODE FULL # IVF with HL when completed today # Precautions. None # Diet. Cardiac will be changed. Titi Tay MD Feb 19, 2020 10:34
--- NOTE | 2020-02-19 10:44 | General Progress Note ---
Subjective Date patient seen: Feb 19, 2020 Time patient seen: 10:00 ROS Limited/Unobtainable: Yes Allergies: Coded Allergies: No Known Allergies (Unverified , 02/16/20) Subjective Feels better, denies chest pain or shortness of breath. Reports feeling anxious all over his body. 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 Objective Last 24 Hour Vital Signs Date Time Temp Pulse Resp B/P (MAP) Pulse Ox O2 Delivery O2 Flow Rate FiO2 02/19/20 09:00 Room Air 02/19/20 08:52 146/81 02/19/20 08:52 71 146/81 02/19/20 08:00 96.8 71 18 146/81 (102) 97 02/19/20 08:00 73 02/19/20 05:50 97.7 02/19/20 04:22 97.7 02/19/20 04:00 97.7 63 18 154/73 (100) 99 02/19/20 04:00 58 02/19/20 03:09 98.2 02/19/20 00:00 98.2 65 20 166/83 (110) 98 02/19/20 00:00 65 02/18/20 23:40 166/83 02/18/20 23:06 98.6 02/18/20 21:00 Room Air 02/18/20 20:00 64 02/18/20 20:00 98.6 98 20 154/77 (102) 98 02/18/20 16:00 84 02/18/20 16:00 98.1 71 18 141/71 (94) 98 02/18/20 12:00 96.6 69 20 154/66 (95) 97 02/18/20 12:00 62 Intake and Output 02/18/20 02/19/20 19:00 07:00 Intake Total 536.25 ml Output Total 1200 ml 1100 ml Balance -1200 ml -563.75 ml Intake Oral 210 ml IV Total 326.25 ml Output Urine Total 1200 ml 1100 ml # Voids 3 3 Height (Feet): 6 Height (Inches): 2.00 Weight (Pounds): 190 General Appearance: WD/WN EENT: PERRL/EOMI Neck: non-tender Cardiovascular: regular rhythm Respiratory/Chest: normal breath sounds Neurologic: docket clerk II-XII grossly normal Assessment/Plan Status: stable Assessment/Plan: 79 y/o M admitted to inpatient with telemetry # Chest pain resolved. EKG is negative for ischemia, troponin negative x 2 TTE with EF 65 % and NO WMA 13 beat VT noted on telemetry and EP cardiology consultation appreciated. Nuclear stress test to rule out ischemia ordered. PRN NTG ordered. Continue low dose ASA Ddx include atypical chest pain, chostocondritis, GI etiology - esophagitis. Continue PPI # Hypertensive heart disease Amlodipine 5 mg was started Add lisinopril 5 mg daily Monitor BP and PRN Hydralizine if SBP > 160 # Constipation Start Miralax # Generalized weakness PT session FWW training today Will continue to use FWW # Generalized anxiety disorder Will start Celexa 10 mg and PRN lorazepam # Disposition BC when ready to dc - pending cardiology clearance. # DVT ppx with LMWH # GI ppx with PPI # CODE FULL # IVF with HL when completed today # Precautions. None # Diet. Cardiac will be changed. Titi Tay MD Feb 19, 2020 10:44
[2020-02-19] MEDS ORDERED: LORazepam 0.5mg tab ORAL PRN (10:45)
[2020-02-19 12:00] VITALS: BP 145/77
[2020-02-19 16:00] VITALS: BP 133/75
--- NOTE | 2020-02-19 16:32 | Cardiac Electrophysiology PN ---
Assessment/Plan Assessment/Plan 1. Chest pain. The patient was ruled out for myocardial infarction with serial cardiac enzymes. EKG is nonischemic. Echocardiogram showed normal left ventricular systolic function. The patient, however, had 13 beats of ventricular tachycardia. Will proceed with nuclear stress test on Friday to make sure this is not ischemic. 2. Nonsustained ventricular tachycardia of 13 beats. Again, we will proceed with nuclear stress test. 3. Accelerated hypertension. Continue lisinopril 5 mg daily and Norvasc 5 mg daily. The patient is also on p.r.n. hydralazine. 4. History of renal failure in the past, that is resolved, current creatinine is 1.1. Subjective Subjective No CP or SOB. No more VT overnight. Scheduled for PPM implant Objective Last 24 Hour Vital Signs Date Time Temp Pulse Resp B/P (MAP) Pulse Ox O2 Delivery O2 Flow Rate FiO2 02/19/20 16:00 97.2 58 18 133/75 (94) 96 02/19/20 12:00 97.7 71 20 145/77 (99) 98 02/19/20 12:00 65 02/19/20 09:00 Room Air 02/19/20 08:52 146/81 02/19/20 08:52 71 146/81 02/19/20 08:00 96.8 71 18 146/81 (102) 97 02/19/20 08:00 73 02/19/20 05:50 97.7 02/19/20 04:22 97.7 02/19/20 04:00 97.7 63 18 154/73 (100) 99 02/19/20 04:00 58 02/19/20 03:09 98.2 02/19/20 00:00 98.2 65 20 166/83 (110) 98 02/19/20 00:00 65 02/18/20 23:40 166/83 02/18/20 23:06 98.6 02/18/20 21:00 Room Air 02/18/20 20:00 64 02/18/20 20:00 98.6 98 20 154/77 (102) 98 Intake and Output 02/18/20 02/19/20 19:00 07:00 Intake Total 536.25 ml Output Total 1200 ml 1100 ml Balance -1200 ml -563.75 ml Intake Oral 210 ml IV Total 326.25 ml Output Urine Total 1200 ml 1100 ml # Voids 3 3 Objective HEAD AND NECK: Showed no JVD. LUNGS: Clear. CARDIOVASCULAR: Shows regular S1 and S2 with no gallop or murmur. ABDOMEN: Soft. EXTREMITIES: No pitting edema. Ronn Dhaliwal MD Feb 19, 2020 16:32
--- NOTE | 2020-02-19 19:17 | NUR ---
NURSE HAND-OFF REPORT: Important Events on Shift:[] Patient Status: [] Diet: [] Pending Orders: [] Pending Results/Labs:[] Pending MD notification:[] Latest Vital Signs: Temperature 97.2 , Pulse 59 , B/P 133 /75 , Respiratory Rate 18 , O2 SAT 96 , Room Air, O2 Flow Rate . Vital Sign Comment: [] EKG Rhythm: Sinus Bradycardia Rhythm change?: Y MD Notified?: N - MD Response: Latest Shin Fall Score: 45 Fall Risk: High Risk Safety Measures: Call light Within Reach, Bed Alarm Zone 2, Side Rails Side Rails x3, Bed position Low and Locked. Fall Precautions: Yellow Socks Yellow Gown Door Sign Patient Fall Education Report given to [FABIEN Cao].
--- NOTE | 2020-02-19 19:30 | NUR ---
NURSE NOTES: Report received from FABIEN Bello. No SOB or distress. Alert and oriented x4. Call light and bedside table within reach. Bed at lowest position locked with side rails up. Will continue with plan of care.
[2020-02-19 20:00] VITALS: BP 118/62
--- NOTE | 2020-02-19 20:13 | Cardiology Report ---
APPROVED REPORT EKG Measurement Heart [id number] <Conclusion> Normal sinus rhythm Normal ECG
[2020-02-19] MEDS: Enoxaparin 40mg Inj SUBQ SCH (21:57)
[2020-02-20] VITALS: BP 117/68
[2020-02-20 04:00] VITALS: BP 121/74
[2020-02-20] MEDS: 1/2 NORMAL SALINE IV SCH ×3 (05:45→19:01)
--- NOTE | 2020-02-20 07:33 | NUR ---
NURSE HAND-OFF REPORT: Important Events on Shift:[Stable] Patient Status: [Alert and oriented] Diet: [Mech Soft ] Pending Orders: [] Pending Results/Labs:[] Pending MD notification:[] Latest Vital Signs: Temperature 97.2 , Pulse 61 , B/P 121 /74 , Respiratory Rate 17 , O2 SAT 97 , Room Air, O2 Flow Rate . Vital Sign Comment: [] EKG Rhythm: Sinus Rhythm Rhythm change?: N MD Notified?: N - MD Response: Latest Shin Fall Score: 45 Fall Risk: High Risk Safety Measures: Call light Within Reach, Bed Alarm Zone 2, Side Rails Side Rails x3, Bed position Low and Locked. Fall Precautions: Yellow Socks Yellow Gown Door Sign Patient Fall Education Report given to [].
--- NOTE | 2020-02-20 07:56 | General Progress Note ---
Subjective Date patient seen: Feb 20, 2020 Time patient seen: 07:30 ROS Limited/Unobtainable: No Allergies: Coded Allergies: No Known Allergies (Unverified , 02/16/20) All Systems: reviewed and negative except above Subjective Feels better, denies chest pain or shortness of breath. Objective Last 24 Hour Vital Signs Date Time Temp Pulse Resp B/P (MAP) Pulse Ox O2 Delivery O2 Flow Rate FiO2 02/20/20 04:00 61 02/20/20 04:00 97.2 70 17 121/74 (90) 97 02/20/20 00:00 98.0 65 18 117/68 (84) 94 02/20/20 00:00 60 02/19/20 21:00 Room Air 02/19/20 20:38 118/65 02/19/20 20:00 97.6 62 19 118/62 (80) 98 02/19/20 20:00 63 02/19/20 16:00 97.2 58 18 133/75 (94) 96 02/19/20 16:00 59 02/19/20 12:00 97.7 71 20 145/77 (99) 98 02/19/20 12:00 65 02/19/20 09:00 Room Air 02/19/20 08:52 146/81 02/19/20 08:52 71 146/81 02/19/20 08:00 96.8 71 18 146/81 (102) 97 02/19/20 08:00 73 Intake and Output 02/19/20 02/20/20 19:00 07:00 Intake Total 600 ml 400 ml Output Total 600 ml 1100 ml Balance 0 ml -700 ml Intake Oral 600 ml 400 ml Output Urine Total 600 ml 1100 ml Laboratory Tests 02/20/20 06:25: White Blood Count [Pending], Red Blood Count [Pending], Hemoglobin [Pending], Hematocrit [Pending], Mean Corpuscular Volume [Pending], Mean Corpuscular Hemoglobin [Pending], Mean Corpuscular Hemoglobin Concent [Pending], Red Cell Distribution Width [Pending], Platelet Count [Pending], Mean Platelet Volume [Pending], Neutrophils (%) (Auto) [Pending], Lymphocytes (%) (Auto) [Pending], Monocytes (%) (Auto) [Pending], Eosinophils (%) (Auto) [Pending], Basophils (%) (Auto) [Pending], Sodium Level [Pending], Potassium Level [Pending], Chloride Level [Pending], Carbon Dioxide Level [Pending], Blood Urea Nitrogen [Pending], Creatinine [Pending], Estimat Glomerular Filtration Rate [Pending], Glucose Level [Pending], Calcium Level [Pending], Phosphorus Level [Pending], Magnesium Level [Pending] Height (Feet): 6 Height (Inches): 2.00 Weight (Pounds): 190 General Appearance: WD/WN EENT: PERRL/EOMI Neck: non-tender Cardiovascular: normal rate Respiratory/Chest: decreased breath sounds Abdomen: normal bowel sounds Neurologic: learning administrator II-XII grossly normal Assessment/Plan Status: stable Assessment/Plan: 79 y/o M admitted to inpatient with telemetry # Chest pain resolved. EKG is negative for ischemia, troponin negative x 2 TTE with EF 65 % and NO WMA 13 beat VT noted on telemetry 02/16 and EP cardiology consultation appreciated. Nuclear stress test to rule out ischemia ordered. No more abnormal telemetry activity noted. PRN NTG ordered. Continue low dose ASA Ddx include atypical chest pain, chostocondritis, GI etiology - esophagitis. Continue PPI # Hypertensive heart disease Amlodipine 5 mg was started Add lisinopril 5 mg daily Monitor BP and PRN Hydralizine if SBP > 160 # Constipation Start Miralax # Generalized weakness PT session FWW training today Will continue to use FWW # Generalized anxiety disorder Started Celexa 10 mg and PRN lorazepam # Disposition BC when ready to dc - pending cardiology clearance. # DVT ppx with LMWH # GI ppx with PPI # CODE FULL # IVF with HL # Precautions. None # Diet. Cardiac will be changed. Titi Tay MD Feb 20, 2020 07:56
[2020-02-20 07:58] LABS: BASOPHILS % (AUTO) 1.5 % (0.0-2.0); EOSINOPHILS % (AUTO) 5.8 % (0.0-3.0); HEMATOCRIT 41.8 % (42.0-52.0); HEMOGLOBIN 13.7 G/DL (14.2-18.0); LYMPHOCYTES % (AUTO) 46.8 % (20.0-45.0); MEAN CORPUSCULAR VOLUME 84 FL (80-99); MONOCYTES % (AUTO) 9.2 % (1.0-10.0); NEUTROPHILS % (AUTO) 36.7 % (45.0-75.0); PLATELET COUNT 136 K/UL (150-450); RED BLOOD COUNT 4.98 M/UL (4.70-6.10); RED CELL DISTRIBUTION WIDTH 14.2 % (11.6-14.8); WHITE BLOOD COUNT 3.8 K/UL (4.8-10.8)
[2020-02-20 08:00] VITALS: BP 124/73
--- NOTE | 2020-02-20 08:09 | NUR ---
NURSE NOTES: pt ate breakfast in bed. reports no pain. pt on threat monitoring analyst no signs of cardiac or respiratory distress at this time. Bed is locked and in lowest position. Call light within reach. Will continue to monitor. pt gets up with assistance of nurse and walker, set up bed alarm and educated pt on using call light for assistance. Pt is wearing yellow gown and socks.
[2020-02-20 08:40] LABS: ANION GAP 11 mmol/L (5-15); BLOOD UREA NITROGEN 12 mg/dL (7-18); CALCIUM 8.8 MG/DL (8.5-10.1); CARBON DIOXIDE 22 MMOL/L (21-32); CHLORIDE 103 MMOL/L (98-107); CREATININE 0.8 MG/DL (0.55-1.30); PHOSPHORUS 3.3 MG/DL (2.5-4.9); POTASSIUM 4.7 MMOL/L (3.5-5.1); SODIUM 136 MMOL/L (136-145)
[2020-02-20] MEDS: Lisinopril 2.5mg tab ORAL SCH (08:45)
[2020-02-20] MEDS: Aspirin Baby 81mg ORAL SCH (08:48)
--- NOTE | 2020-02-20 08:55 | Cardiology Report ---
APPROVED REPORT EXAM: Two-dimensional and M-mode echocardiogram with Doppler and color Doppler. INDICATION Hypertension M-Mode DIMENSIONS IVSd1.4 (0.7-1.1cm)Left Atrium (MM)3.5 (1.6-4.0cm) LVDd5.2 (3.5-5.6cm)Aortic Root3.4 (2.0-3.7cm) PWd1.4 (0.7-1.1cm)Aortic Cusp Exc.1.8 (1.5-2.0cm) IVSs1.9 cmEPSS0.4 (>1.0cm) LVDs3.0 (2.5-4.0cm) PWs1.8 cm Other Information Technically limited study due to poor acoustical windows <Conclusion> Normal left ventricular chamber size, systolic function and wall motion to extent visualized. Left ventricular ejection fraction estimated to be 65 %. Mild left ventricular hypertrophy. Anterior Echo-free space, may be due to pericardial fat or effusion. All other cardiac chamber sizes are within normal limits. Focal aortic valve sclerosis with adequate cusp excursion. Thickened mitral valve leaflets with normal excursion. Mitral annulus and aortic root calcification. Normal pulmonic valve structure. Normal tricuspid valve structure. IVC at normal size with physiologic collapse. A color flow and spectral Doppler study was performed and revealed: No aortic regurgitation. Trace mitral regurgitation. Mitral diastolic velocities suggest reduced left ventricular relaxation c/w mild LV diastolic dysfunction (Grade I ). Trace tricuspid regurgitation. Tricuspid systolic velocities suggests peak right ventricular systolic pressure of 17 mmHg. No pulmonic regurgitation present.
[2020-02-20 12:00] VITALS: BP 153/77
--- NOTE | 2020-02-20 15:14 | Cardiac Electrophysiology PN ---
Assessment/Plan Assessment/Plan 1. Chest pain. Ruled out for myocardial infarction with serial cardiac enzymes. EKG is nonischemic. Echocardiogram showed normal left ventricular systolic function. The patient, however, had 13 beats of ventricular tachycardia. Will proceed with nuclear stress test tomorrow to make sure this is not ischemic. 2. Nonsustained ventricular tachycardia of 13 beats. Again, we will proceed with nuclear stress test. 3. Accelerated hypertension. Continue lisinopril 5 mg daily and Norvasc 5 mg daily. The patient is also on p.r.n. hydralazine. 4. History of renal failure in the past, that is resolved, current creatinine is 1.1. Subjective Subjective No CP or SOB. No more VT overnight. Scheduled for stress test tomorrow Objective Last 24 Hour Vital Signs Date Time Temp Pulse Resp B/P (MAP) Pulse Ox O2 Delivery O2 Flow Rate FiO2 02/20/20 08:48 78 124/73 02/20/20 08:45 124/73 02/20/20 04:00 61 02/20/20 04:00 97.2 70 17 121/74 (90) 97 02/20/20 00:00 98.0 65 18 117/68 (84) 94 02/20/20 00:00 60 02/19/20 21:00 Room Air 02/19/20 20:38 118/65 02/19/20 20:00 97.6 62 19 118/62 (80) 98 02/19/20 20:00 63 02/19/20 16:00 97.2 58 18 133/75 (94) 96 02/19/20 16:00 59 Intake and Output 02/19/20 02/20/20 19:00 07:00 Intake Total 600 ml 400 ml Output Total 600 ml 1100 ml Balance 0 ml -700 ml Intake Oral 600 ml 400 ml Output Urine Total 600 ml 1100 ml Laboratory Tests Test 02/20/20 06:25 White Blood Count 3.8 K/UL (4.8-10.8) L Red Blood Count 4.98 M/UL (4.70-6.10) Hemoglobin 13.7 G/DL (14.2-18.0) L Hematocrit 41.8 % (42.0-52.0) L Mean Corpuscular Volume 84 FL (80-99) Mean Corpuscular Hemoglobin 27.6 PG (27.0-31.0) Mean Corpuscular Hemoglobin Concent 32.8 G/DL (32.0-36.0) Red Cell Distribution Width 14.2 % (11.6-14.8) Platelet Count 136 K/UL (150-450) L Mean Platelet Volume 6.1 FL (6.5-10.1) L Neutrophils (%) (Auto) 36.7 % (45.0-75.0) L Lymphocytes (%) (Auto) 46.8 % (20.0-45.0) H Monocytes (%) (Auto) 9.2 % (1.0-10.0) Eosinophils (%) (Auto) 5.8 % (0.0-3.0) H Basophils (%) (Auto) 1.5 % (0.0-2.0) Sodium Level 136 MMOL/L (136-145) Potassium Level 4.7 MMOL/L (3.5-5.1) Chloride Level 103 MMOL/L (98-107) Carbon Dioxide Level 22 MMOL/L (21-32) Anion Gap 11 mmol/L (5-15) Blood Urea Nitrogen 12 mg/dL (7-18) Creatinine 0.8 MG/DL (0.55-1.30) Estimat Glomerular Filtration Rate > 60 mL/min (>60) Glucose Level 79 MG/DL (74-106) Calcium Level 8.8 MG/DL (8.5-10.1) Phosphorus Level 3.3 MG/DL (2.5-4.9) Magnesium Level 2.1 MG/DL (1.8-2.4) Objective HEAD AND NECK: Showed no JVD. LUNGS: Clear. CARDIOVASCULAR: Shows regular S1 and S2 with no gallop or murmur. ABDOMEN: Soft. EXTREMITIES: No pitting edema. Ronn Dhaliwal MD Feb 20, 2020 15:14
[2020-02-20 16:00] VITALS: BP 143/82
--- NOTE | 2020-02-20 19:39 | NUR ---
NURSE HAND-OFF REPORT: Important Events on Shift: pt knows he is having stress test tomorrow, npo at midnight no coffee or any drinks that have caffeine Patient Status: full Diet: NPO tonight Pending Orders: stress test Pending Results/Labs: Pending MD notification: Latest Vital Signs: Temperature 98.1 , Pulse 65 , B/P 143 /82 , Respiratory Rate 18 , O2 SAT 98 , Room Air, O2 Flow Rate . Vital Sign Comment: EKG Rhythm: Sinus Rhythm Rhythm change?: N MD Notified?: N - MD Response: Latest Shin Fall Score: 45 Fall Risk: High Risk Safety Measures: Call light Within Reach, Bed Alarm Zone 2, Side Rails Side Rails x3, Bed position Low and Locked. Fall Precautions: y Yellow Socks y Yellow Gown y Door Sign y Patient Fall Education Report given to Maria/RN.
--- NOTE | 2020-02-20 19:44 | NUR ---
NURSE NOTES: Received report from FABIEN Godinez. Patient is awake on bed, alert and oriented x 4. On mechanical soft diet, instructed and amenable. customer service sales consultant is in place, shows sinus rhythm with no chest pain reported. On room air, sating 98% with no shortness of breath reported. On fall precaution, bed alarm is on. IV site is on right hand g-22, running fluid of 1/2 NS @ 75 cc/hour that is patent and intact. Safety measures are in place, bed in lowest and locked position, side rails up x 2, call light button and bedside table within reach, instructed to call for any assistance needed, will continue plan of care.
[2020-02-20 20:00] VITALS: BP 162/89
--- NOTE | 2020-02-20 21:17 | NUR ---
NURSE NOTES: Patient complaints if difficulty in sleeping and states that it's almost 2 days now. Provided a quiet environment and turn the lights off. Called Dr. Tay and left a message, awaiting for call back.
[2020-02-20] MEDS: HydrALAZINE 25mg tab ORAL PRN (22:07)
[2020-02-20] MEDS: Enoxaparin 40mg Inj SUBQ SCH (22:10)
[2020-02-21] VITALS (7 sets, daily range): BP systolic 135–173; BP diastolic 50–85
--- NOTE | 2020-02-21 07:09 | NUR ---
NURSE HAND-OFF REPORT: Important Events on Shift: Patient complaints yesterday evening of difficulty in sleeping and medication was given. With 1 episode og high blood pressure, denies any pain at that time, hydralazine 25mg/tablet was given. Patient Status: Patient is asleep on bed, on NPO post midnight. Schedule for Lexiscan and NM myocardial perfusion today. Plan of care endorsed. Diet: Cardiac diet Pending Orders: LEXISCAN and Myocardial perfusion with ejection fraction Pending Results/Labs:none Pending MD notification:none Latest Vital Signs: Temperature 97.9 , Pulse 70 , B/P 135 /80 , Respiratory Rate 17 , O2 SAT 100 , Room Air, O2 Flow Rate . Vital Sign Comment: stable EKG Rhythm: Sinus Rhythm Rhythm change?: N MD Notified?: N - MD Response: Latest Shin Fall Score: 45 Fall Risk: High Risk Safety Measures: Call light Within Reach, Bed Alarm Zone 1, Side Rails Side Rails x2, Bed position Low and Locked. Fall Precautions: Yellow Socks Yellow Gown Door Sign Patient Fall Education Report given to FABIEN Alegre.
--- NOTE | 2020-02-21 07:21 | NUR ---
NURSE NOTES: PT received from Maria Das RN. Pt sitting up in bed on NPO for morenita later today, reinforced use of call light should he nee to go to the restroom. Verbalizes understanding. Bed low and locked. Call light within reach. No complaint of pain or distress at this time.
--- NOTE | 2020-02-21 08:57 | NUR ---
CASE MANAGEMENT:REVIEW 02/21/20 SI: CHEST PAIN. SVT. ACCELERATED HTN 97.5 69 20 155/78 97% ON RA TROPONIN'S (-) IS: IV LEXISCAN X1 NEURONTIN PO TID LISINOPRIL PO QD NORVASC PO QD PROTONIX PO QD ASA PO QD IVF@75/HR HYDRALAZINE PRN IV MORPHINE PRN : TELEMETRY STATUS DCP: HOME PLAN: STRESS TEST FOR TODAY FWW W/SEAT ORDERED
[2020-02-21] MEDS: Aspirin Baby 81mg ORAL SCH (09:07)
[2020-02-21] MEDS: Lisinopril 2.5mg tab ORAL SCH (09:08)
--- NOTE | 2020-02-21 09:45 | NUR ---
NURSE NOTES: Spoke to Claudia corrections caseworker regarding RX that is not covered. She is going to address insurance issues.
--- NOTE | 2020-02-21 12:56 | Discharge Summary ---
Discharge Summary Hospital Course Date of Admission Feb 18, 2020 at 13:52 Date of Discharge 02/21/2020 Admitting Diagnosis chest pain HPI Ronnie Galeano is a 79 year old male who was admitted on Feb 18, 2020 at 13:52 for Chest Pain Hospital Course 79 y/o M admitted to inpatient with telemetry # Chest pain resolved. EKG is negative for ischemia, troponin negative x 2 TTE with EF 65 % and NO WMA 13 beat VT noted on telemetry 02/16 and EP cardiology consultation appreciated. Nuclear stress test to rule out ischemia WAS NEGATIVE AND DR. CHAVES APPROVED DISCHARGE HOME. No more abnormal telemetry activity noted. PRN NTG ordered and not needed. Continue low dose ASA Ddx include atypical chest pain, chostocondritis, GI etiology - esophagitis. Continue PPI # Hypertensive heart disease Amlodipine 5 mg and lisinopril 5 mg daily Monitor BP and PRN Hydralizine if SBP > 160 # Constipation Start Miralax # Generalized weakness PT session FWW training today Will continue to use FWW # Generalized anxiety disorder Started Celexa 10 mg and PRN lorazepam # Disposition BC when ready to dc - pending cardiology clearance. # DVT ppx with LMWH # GI ppx with PPI # CODE FULL # IVF with HL # Precautions. None # Diet. Cardiac will be changed. Discharge Condition Upon Discharge: stable Discharge Vital Signs Last Vital Signs Date Time Temp Pulse Resp B/P (MAP) Pulse Ox O2 Delivery O2 Flow Rate FiO2 02/21/20 12:00 70 02/21/20 12:00 97.0 20 150/74 (99) 97 02/21/20 09:00 Room Air Discharge Disposition Patient was discharged to Board and Care Discharge Diagnoses: (1) Chest pain (2) Hypertension (3) Esophagitis Discharge Instructions Discharge Instructions Services Upon Discharge: day care For [facility] May shower: Yes Titi Tay MD Feb 21, 2020 12:56
--- NOTE | 2020-02-21 13:12 | Cardiac Electrophysiology PN ---
Assessment/Plan Assessment/Plan 1. Chest pain. Ruled out for myocardial infarction with serial cardiac enzymes. EKG is nonischemic. Echocardiogram showed normal left ventricular systolic function. The patient, however, had 13 beats of ventricular tachycardia. Awaiting results of nuclear stress test today 2. Nonsustained ventricular tachycardia of 13 beats. Awaiting results of nuclear stress test today 3. Accelerated hypertension. Continue lisinopril 5 mg daily and Norvasc 5 mg daily. The patient is also on p.r.n. hydralazine. 4. History of renal failure in the past, that is resolved, current creatinine is 1.1. DW Dr Tay and RN Subjective Subjective No CP or SOB. No more VT overnight. Had stress test today and results are pending Objective Last 24 Hour Vital Signs Date Time Temp Pulse Resp B/P (MAP) Pulse Ox O2 Delivery O2 Flow Rate FiO2 02/21/20 12:00 70 02/21/20 12:00 97.0 85 20 150/74 (99) 97 02/21/20 09:08 155/78 02/21/20 09:08 69 155/78 02/21/20 09:00 Room Air 02/21/20 08:00 97.5 69 20 155/78 (103) 97 02/21/20 08:00 109 02/21/20 04:00 81 02/21/20 04:00 97.9 70 17 135/80 (98) 100 02/21/20 00:00 97.7 61 18 143/82 (102) 100 02/21/20 00:00 76 02/20/20 22:07 162/89 02/20/20 21:00 Room Air 02/20/20 20:00 61 02/20/20 20:00 97.9 64 17 162/89 (113) 100 02/20/20 18:36 Room Air 02/20/20 16:00 98.1 56 18 143/82 (102) 98 02/20/20 16:00 65 Intake and Output0 02/20/20 02/21/20 19:00 07:00 Intake Total 480 ml 1825 ml Output Total 1000 ml 700 ml Balance -520 ml 1125 ml Intake Oral 480 ml 1000 ml IV Total 825 ml Output Urine Total 1000 ml 700 ml Objective HEAD AND NECK: Showed no JVD. LUNGS: Clear. CARDIOVASCULAR: Shows regular S1 and S2 with no gallop or murmur. ABDOMEN: Soft. EXTREMITIES: No pitting edema. Ronn Dhaliwal MD Feb 21, 2020 13:12
--- NOTE | 2020-02-21 14:40 | Diagnostic Imaging Report ---
Indications: Chest pain Technique: See cardiology report for details of LexiScan stress testing. During LexiScan infusion, IV administration 30.5 mCi 99 M technetium Myoview. SPECT and planar images obtained. SPECT images gated to 8 phases of the cardiac cycle were also obtained, and reformatted into cine images for evaluation of ejection fraction. On the subsequent day, resting images obtained using IV administration 10 mCi 99 M technetium alveolar. Comparison:none Findings: Calculated ejection fraction of 68%. No definite focal fixed or reversible perfusion defect is appreciated. No discrete abnormality appreciated on the generated defect blackout maps. IMPRESSION: No fixed or reversible perfusion defect identified. Calculated EF 68%
[2020-02-21] MEDS ORDERED: Flu Vac High-Dose for Pts 65 Years and Older IM ONE (15:00)
--- NOTE | 2020-02-21 17:58 | NUR ---
NURSE NOTES: Spoke to Claudia to confirm where pt is going. Per CM, he is going to [facility] at [address] [place] [address]. Lowell Toro at [phone] that he will be leaving shortly.
--- NOTE | 2020-02-21 18:45 | NUR ---
NURSE NOTES: [facility] called and ambulance called for 7:30. Pt given D/C instructions, medication and belongings. Everything signed for. Cut wrist band, removed tele box, and removed IV from right hand Pt stable states he understands that he is returning to the boarding care he came from. Please note Nursing DC documentation says "Picked up by taxt" however in reality pt picked up by ambulance.
--- NOTE | 2020-02-21 18:55 | CDS Physician Query ---
6Clarification is required for compliance, coding accuracy, and to reflect severity of illness for this patient Dear Titi Burnham MD Date: 02/21/2020 CDIS Name Girish Fernando 79 y/o AA male admitted to the hospital due to chest pain. ASSESSMENT: Chest pain. Hypertensive heart disease, Constipation Generalized weakness, Disposition, [ H&P Titi Tay MD Feb 17, 2020 11:22] Lexiscan Nuclear stress test( 02/20): Conclusions : NON-ISCHEMIC Echo showed: EF of 65%. Mild left ventricular hypertrophy, focal aortic valve sclerosis LABORATORY DATA(02/15): Troponin 0.001. BNP 40 Please document the suspected etiology of Chest Pain: [] Aortic dissection [] Acute myocardial infarction [] Acute Coronary Syndrome [] Pericarditis [] Anxiety [] Cancer [] Pneumonia [] Costochondritis [] Pneumothorax [x] GERD/Esophagitis [] Pulmonary embolism [] Other: [] Unable to determine Present on Admission: x[] Yes [] No [] Clinically Undetermined Titi Tay 02/21/20 Physician signature Date Please also document in your Progress Notes and/or Discharge Summary and indicate if the condition was present on admission. MTDD
--- NOTE | 2020-02-21 19:02 | NUR ---
NURSE HAND-OFF REPORT: Important Events on Shift:[DC order in place. IV removed, wrist band cut, off tele. Waiting for ambulance which will be here at 7:30. Muna at [facility] informed and waiting on pt. ] Patient Status: [awake and alert. stable] Diet: [Cardiac mechanical soft] Pending Orders: [] Pending Results/Labs:[] Pending MD notification:[] Latest Vital Signs: Temperature 97.5 , Pulse 66 , B/P 153 /73 , Respiratory Rate 20 , O2 SAT 98 , Room Air, O2 Flow Rate . Vital Sign Comment: [stable] EKG Rhythm: Sinus Rhythm Rhythm change?: N MD Notified?: Neelam Dhaliwal MD Response: Latest Shin Fall Score: 45 Fall Risk: High Risk Safety Measures: Call light Within Reach, Bed Alarm Zone 1, Side Rails Side Rails x2, Bed position Low and Locked. Fall Precautions: Yellow Socks Yellow Gown Door Sign Patient Fall Education Report given to [Maria Mijares RN].
--- NOTE | 2020-02-21 19:07 | NUR ---
NURSE NOTES: Received report from FABIEN Alegre. Patient is awake on bed, alert and oriented x 4. IV was removed by Warren CONN. Awaiting for ambulance to roller picker the patient. Safety measures are in place, bed in lowest and locked position, side rails up x 2, call light button and bedside table within reach, instructed to call for any assistance needed, Will follow up ambulance.
--- NOTE | 2020-02-21 20:00 | NUR ---
NURSE NOTES: Called [facility] ambulance to follow up pick-up, spoke with Hunter and he says ambulance will come around 30-45 minutes. Patient is aware. Will follow up.
[2020-02-21] MEDS: HydrALAZINE 25mg tab ORAL PRN (20:30)
--- NOTE | 2020-02-21 21:15 | NUR ---
NURSE NOTES: Patient is being discharged from medical care. Awake, alert and oriented x 3-4. After care instructions, and medications were given directly to patient. Patient verbalized understanding of After care instructions. Patient signed patient consent in the medical record for patient destination upon discharge. All medical devices such as IV and ID band were removed. Front wheeled walker provided for ambulation support. Face sheet and report were given to EMS. At this time patient is in stable condition, with no complaints made.
--- NOTE | 2020-02-22 14:28 | NUR ---
INSURANCE DC SUMMARY FAXED TO JAMAAL CASAS [phone]
== END 2020-02-21 21:45 | disposition home or self-care (01) | DRG 392 ==
LOC: EMR 18:59 → 2E 20:56 → EDBEDREQ 21:03 → 2E 21:53 → OBSVTOIN 02-18 13:52
DX: K21.00 Gastro-esophageal reflux disease with esophagitis, without bleeding (principal); I47.2 Ventricular tachycardia; I11.0 Hypertensive heart disease with heart failure; Z23 Encounter for immunization; K59.00 Constipation, unspecified; I50.9 Heart failure, unspecified; F41.9 Anxiety disorder, unspecified
CPT/HCPCS: 36415; 71045; 74176; 78452; 80048; 80053; 83735; 83880; 84100; 84443; 84484; 85007; 85025; 93005; 93017; 93306; 96360; 96361; 96374; 99284; J2785